=== PATIENT | female | born 1950 | race Caucasian/White ===

== ENCOUNTER 2019-01-08 16:57 | Emergency (ER) | payer MEDICARE ==
[~2019-01-08] VITALS: Ht 160 cm; Wt 40.8 kg
[2019-01-08] MEDS ORDERED: ATEN50TA PO (17:15)
[2019-01-08] MEDS ORDERED: LORA-258 PO (17:15)
--- NOTE | 2019-01-08 17:30 | NUR ---
in room 1a brought in by paramedics. patient is blind but verabally communicative. was brought in for generalized weakness. lives alone with poor living condition
[2019-01-08 18:55] LABS: BASOPHILS % (AUTO) 0.3 % (0.0-2.0); EOSINOPHILS % (AUTO) 0.1 % (0.0-7.0); HEMATOCRIT 35.6 % (31.2-41.9); HEMOGLOBIN 11.9 g/dL (10.9-14.3); LYMPHOCYTES # (AUTO) 1.3 K/uL (20.0-40.0); LYMPHOCYTES % (AUTO) 30.5 % (20.5-51.5); MEAN CORPUSCULAR HEMOGLOBIN 31.3 uug (24.7-32.8); MEAN CORPUSCULAR HGB CONC 34 g/dL (32.3-35.6); MEAN CORPUSCULAR VOLUME 93.3 fL (75.5-95.3); MONOCYTES # (AUTO) 0.7 K/uL (2.0-10.0); MONOCYTES % (AUTO) 17.7 % (0.0-11.0); NEUTROPHILS # (AUTO) 2.2 K/uL (1.8-8.9); NEUTROPHILS % (AUTO) 51.4 % (38.5-71.5); PLATELET COUNT (AUTO) 71 K/uL (179-408); RED BLOOD CELL COUNT(AUTO) 3.82 MIL/uL (3.63-4.92); WHITE BLOOD COUNT (AUTO) 4.2 K/uL (3.8-11.8)
--- NOTE | 2019-01-08 19:00 | NUR ---
seen by dr Cisneros
--- NOTE | 2019-01-08 19:07 | NUR ---
report given to Nick PHAN
--- NOTE | 2019-01-08 19:08 | NUR ---
report received from CLAUDIA Cordon.
[2019-01-08 19:10] LABS: ALANINE AMINOTRANSFERASE 20 U/L (14-59); ALKALINE PHOSPHATASE 106 U/L (50-136); ASPARTATE AMINOTRANSFERASE 57 U/L (15-37); BILIRUBIN,DIRECT 0.4 mg/dL (0.0-0.2); BILIRUBIN,TOTAL 1.2 mg/dL (0.2-1.0); CARBON DIOXIDE 32 mmol/L (21-32); CREATININE 0.8 mg/dL (0.6-1.3); GLUCOSE 110 mg/dL (74-106); TOTAL PROTEIN, SERUM 7.3 g/dL (6.4-8.2); UREA NITROGEN, BLOOD 40 mg/dL (7-18)
[2019-01-08 19:18] LABS: CHLORIDE 99 mmol/L (98-107); THYROID STIMULATING HORMONE 3.374 mIU/mL (0.358-3.740)
[2019-01-08 19:20] LABS: ACETAMINOPHEN < 2.0 ug/mL (10-30); POTASSIUM 2.6 mmol/L (3.5-5.1)
--- NOTE | 2019-01-08 19:25 | NUR ---
patient ambulate to bathroom with assist and provided urine sample.
[2019-01-08] MEDS ORDERED: IV NORMAL SALINE 1000 ML BAG IV ONE (19:30)
[2019-01-08 19:33] LABS: ETHANOL < 3 MG/DL (0-0)
[2019-01-08 19:42] LABS: *BILIRUBIN,URIN 2+ (NEGATIVE); *BLOOD, URINE 2+ (NEGATIVE); *CLARITY,URINE SLIGHTLY CLOUDY (CLEAR); *COLOR,URINE Brown (YELLOW); *KETONES,URINE 1+ (NEGATIVE); LEUKOCYTE ESTERASE ,URINE NEGATIVE (NEGATIVE); NITRITE, URINE NEGATIVE (NEGATIVE); PH,URINE 6.5 (5.0-8.0); UGLUCOSE NEGATIVE (NEGATIVE)
[2019-01-08 19:48] LABS: BAND % (MANUAL) 4 % (0-10); LYMPHOCYTES % (MANUAL) 29 % (20-40); MONOCYTES % (MANUAL) 20 % (2-10); NEUTROPHILS % (MANUAL) 47 % (42-75)
[2019-01-08 19:51] LABS: *AMPHETAMINE, URINE NEGATIVE (NEGATIVE); *BARBITURATE, URINE NEGATIVE (NEGATIVE); *CANNABINOID, URINE NEGATIVE (NEGATIVE); *COCCAINE, URINE NEGATIVE (NEGATIVE); *OPIATE, URINE NEGATIVE (NEGATIVE); *PHENCYCLIDINE SCREEN,URINE NEGATIVE (NEGATIVE)
[2019-01-08] MEDS ORDERED: POTASSIUM CHLORIDE 20 MEQ TAB.PRT.SR PO ONE (20:00)
[2019-01-08 20:06] LABS: RBC,URINE 20-50 /HPF (0-3); SQUAMOUS EPITHELIAL CELL,UR MODERATE /HPF (NONE SEEN)
[2019-01-08 20:07] LABS: MUCUS,URINE MANY /LPF (0-FEW)
[2019-01-08] MEDS ORDERED: POTASSIUM CHLORIDE 20 MEQ TAB.PRT.SR ONE (20:37)
--- NOTE | 2019-01-08 23:32 | NUR ---
Charge nurse spoke to alexei who is represenative at [facility]. patient will be transferred. waiting for transfer number and confirmatin from alexei who stated she will call [facility] . patient will be admitted into telemettry floor RM [id number] - [phone].
--- NOTE | 2019-01-09 00:12 | NUR ---
spoke to EMILIE Godoy from [facility] and gave report.
--- NOTE | 2019-01-09 01:12 | NUR ---
patient picked up by [facility]. Patient to be ttansfered to [facility]. patient stable. VSS. patient alert and oriented x3. Patient reluctant and refused to transfer initially. After speaking to the [facility] physician patient was willing to go. Patient belongings was taken with patient. All medical information and forms given to EMT. Report was given prior to transfer. patient able to ambulatory with 1 person assist. patient has unsteady gait with generalized weakness.
== END 2019-01-09 01:12 | disposition short-term general hospital (02) ==
LOC: ER 17:00
DX: R53.1 Weakness (principal); R31.9 Hematuria, unspecified; N13.30 Unspecified hydronephrosis; Z79.899 Other long term (current) drug therapy
CPT/HCPCS: 36415; 70450; 71045; 72125; 74176; 80048; 80076; 80307; 81000; 81001; 82140; 83605; 84443; 84484; 85025; 85730; 87040 ×2; 87086; 93005; 99285; G0480 ×2; G0481; 70030-TC; A4663; J7030